=== PATIENT | male | born 1990 | race Caucasian/White ===

== ENCOUNTER 2020-06-24 13:10 | Emergency (ER) | payer BC ==
--- NOTE | 2020-06-24 13:32 | TELE ---
HPI Do you have fever,cough or shortness of breath?: Yes - General Reason For Visit: COVID 19 TESTING Time Seen by Provider: 06/24/20 13:28 History Source: Patient Exam Limitations: Clinical Condition - History of Present Illness Timing/Duration: unsure Severity: reports: mild Associated Symptoms: denies: chest pain, cough, fever/chills, headaches, nausea/vomiting, shortness of breath, syncope 06/24/20 13:28 Patient with past medical history of COPD presenting to [facility] urgent care for COVID testing as part of job requirement. 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 Patient reported had fever a week ago but has no fever now with temperature of 98.1 F. Denies shortness of breath, cough, chest pain, palpitation. Denies recent travel or known sick contact. Denies any other symptoms Review of Systems - Review of Systems Able to Perform ROS?: Yes Limited Albanian proficient: No Constitutional: No: Chills, Fever, Malaise HEENTM: No: Symptoms Reported, See HPI, Eye Pain, Blurred Vision, Tearing, Recent change in vision, Double Vision, Cataracts, Ear Pain, Ocular Prothesis, Ear Discharge, Nose Pain, Nose Congestion, Tinnitus, Nose Bleeding, Hearing Loss, Throat Pain, Throat Swelling, Mouth Pain, Dental Problems, Difficulty Swallowing, Mouth Swelling, Other Respiratory: No: Symptoms reported, See HPI, Cough, Orthopnea, Shortness of Breath, SOB with Exertion, SOB at Rest, Stridor, Wheezing, Productive cough, Hemoptysis, Other Cardiac (ROS): No: Symptoms Reported, See HPI, Chest Pain, Edema, Irregular Heart Rate, Lightheadedness, Palpitations, Syncope, Chest Tightness, Other ABD/GI: No: Symptoms Reported, Nausea, Vomiting Musculoskeletal: No: Symptoms Reported Neurological: No: Symptoms reported, Headache, Dizziness All Other Systems: Reviewed and Negative *Physical Exam - Physical Exam General Appearance: Yes: Nourished, Appropriately Dressed. No: Apparent Distress HEENT: positive: Normal ENT Inspection Respiratory/Chest: negative: Respiratory Distress, Accessory Muscle Use Musculoskeletal: positive: Normal Inspection Extremity: positive: Normal Inspection, Normal Range of Motion Integumentary: positive: Normal Color Neurologic: positive: Fully Oriented, Alert, Normal Mood/Affect, Normal Response, Motor Strength 5/5 - Medical Decision Making 06/24/20 13:31 Patient with past medical history of COPD [facility] COVID [facility] as part of job requirement. 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 Patient reported had fever a week ago but has no fever now with temperature of 98.1 F. Denies shortness of breath, cough, chest pain, palpitation. Denies recent travel or known sick contact. Denies any other symptoms Patient is symptomatic on exam with no acute respiratory distress. Patient afebrile as patient check temperature while on virtual visit with 98.1 F temp. Discussed self quarantine instructions with patient if patient is symptomatic. Rapid COVID test and antibody test ordered as per patient request. Patient stable for discharge Discharge Diagnosis at time of Disposition: Encounter by telehealth for suspected COVID-19 - Referrals Follow-up Referral(s): Rock Delacruz MD [Primary Care Provider] - - Patient Instructions - Discharge Disposition: HOME Condition at time of Disposition: Stable
== END 2020-06-24 13:32 | disposition home or self-care (01) ==
LOC: JVIRT 13:10
DX: Z11.59 Encounter for screening for other viral diseases (principal)
CPT/HCPCS: 36415; 86769; Q3014-GT; U0003

== ENCOUNTER 2021-01-06 15:02 | Emergency (ER) | payer BC ==
[2021-01-06 15:23] VITALS: BMI 29.7
[2021-01-06 16:38] LABS: BASO % 0.5 % (0-2.0); EOS % 2.1 % (0-4.5); HEMATOCRIT 43.4 % (35.4-49); HEMOGLOBIN 15.2 GM/dL (11.7-16.9); LYMPH % 22.8 % (8-40); MCH 31.8 pg (25.7-33.7); MEAN CELL VOLUME 90.8 fl (80-96); MEAN PLT VOLUME 9.4 fl (7.5-11.1); MONO % 6.9 % (3.8-10.2); NEUT % 67.7 % (42.8-82.8); PLATELET COUNT 224 K/MM3 (134-434); RBC 4.77 M/mm3 (4.00-5.60); RDW 12.6 % (11.9-15.9); WHITE BLOOD COUNT 6.8 K/mm3 (4.0-10.0)
[2021-01-06 17:00] LABS: CHLORIDE 103 mmol/L (98-107); POTASSIUM 3.8 mmol/L (3.5-5.1); SODIUM 138 mmol/L (136-145)
[2021-01-06 17:02] LABS: ALBUMIN 4.5 g/dl (3.4-5.0); ANION GAP 4 MMOL/L (8-16); BLOOD UREA NITROGEN 11.7 mg/dL (7-18); CALCIUM 9.3 mg/dL (8.5-10.1); CO2 31 mmol/L (21-32); GLUCOSE,RANDOM 85 mg/dL (74-106); MAGNESIUM 2.1 mg/dL (1.8-2.4)
[2021-01-06 17:05] LABS: CREATININE 0.9 mg/dL (0.55-1.3); SGOT/AST 19 U/L (15-37); SGPT/ALT 41 U/L (13-61)
[2021-01-06 17:07] LABS: BILIRUBIN,TOTAL 0.5 mg/dL (0.2-1); TOT PROT 8.1 g/dl (6.4-8.2)
[2021-01-06 17:09] LABS: ALK PHOS 98 U/L (45-117)
[2021-01-06 17:50] VITALS: BP 134/64; PULSE 78; TEMP 97.6
== END 2021-01-06 17:50 | disposition home or self-care (01) ==
LOC: JER 15:02
DX: R20.2 Paresthesia of skin (principal); R07.9 Chest pain, unspecified
CPT/HCPCS: 36415; 71046-TC-FY; 80053; 82550; 82553; 83735; 84484; 85025; 93005; 93010; 99285-25

== ENCOUNTER 2024-01-20 10:25 | Emergency (ER) | payer BC, OTHER ==
[2024-01-20 10:35] VITALS: BP 118/76; PULSE 80; RESP 20; TEMP 99; BMI 30.9
[2024-01-20] MEDS ORDERED: IBUPROFEN 600 MG TABLET (FP) PO ONE (11:52)
[2024-01-20] MEDS: IBUPROFEN 600 MG TABLET (FP) PO ONE (11:56)
== END 2024-01-20 12:55 | disposition home or self-care (01) ==
LOC: JERFT 10:25
DX: S60.011A Contusion of right thumb without damage to nail, initial encounter (principal); S80.01XA Contusion of right knee, initial encounter; R22.31 Localized swelling, mass and lump, right upper limb; M79.644 Pain in right finger(s); M25.561 Pain in right knee; X50.9XXA Other and unspecified overexertion or strenuous movements or postures, initial encounter
CPT/HCPCS: 73140-TC-RT-FY; 73562-TC-RT-FY; 99284-25